=== PATIENT | male | born 1985 | race Caucasian/White ===

== ENCOUNTER 2020-08-15 16:01 | Emergency (ER) | payer MEDICAID ==
[~2020-08-15] VITALS: Ht 180.3 cm; Wt 73.5 kg
[2020-08-15 17:12] VITALS: BP 114/62
[2020-08-15] MEDS ORDERED: ONDA4TAB6 PO (18:39)
[2020-08-15] MEDS ORDERED: DIPH25CA83 PO (18:39)
== END 2020-08-15 18:52 | disposition home or self-care (01) ==
LOC: ER 16:02
DX: Z02.89 Encounter for other administrative examinations (principal); F11.90 Opioid use, unspecified, uncomplicated; Z79.899 Other long term (current) drug therapy
CPT/HCPCS: 99283

== ENCOUNTER 2020-08-17 16:41 | Emergency (ER) | payer MEDICAID ==
[~2020-08-17] VITALS: Ht 180.3 cm; Wt 79.5 kg
[~2020-08-17 16:41] MED LIST: DIPH25CA83 PO; ONDA4TAB6 PO
[2020-08-17 16:43] VITALS: BP 126/73
== END 2020-08-17 17:08 | disposition home or self-care (01) ==
LOC: ER 16:42
DX: Z00.01 Encounter for general adult medical examination with abnormal findings (principal); F17.200 Nicotine dependence, unspecified, uncomplicated
CPT/HCPCS: 99281

== ENCOUNTER 2020-08-19 17:22 | Emergency (ER) | payer MEDICAID ==
[~2020-08-19] VITALS: Ht 180.3 cm; Wt 77.3 kg
[2020-08-19 17:31] VITALS: BP_SYST 122
== END 2020-08-19 17:53 | disposition home or self-care (01) ==
LOC: ER 17:22
DX: F11.10 Opioid abuse, uncomplicated (principal); Z00.01 Encounter for general adult medical examination with abnormal findings
CPT/HCPCS: 99281

== ENCOUNTER 2020-08-21 01:14 | Emergency (ER) | payer MEDICAID ==
[~2020-08-21] VITALS: Ht 180.3 cm; Wt 76.0 kg
[2020-08-21 01:17] VITALS: BP 135/61
== END 2020-08-21 01:46 | disposition home or self-care (01) ==
LOC: ER 01:15
DX: F19.10 Other psychoactive substance abuse, uncomplicated (principal); F17.200 Nicotine dependence, unspecified, uncomplicated; F15.90 Other stimulant use, unspecified, uncomplicated; F11.90 Opioid use, unspecified, uncomplicated; Z79.899 Other long term (current) drug therapy
CPT/HCPCS: 99281

== ENCOUNTER 2020-08-30 13:08 | Emergency (ER) | payer MEDICAID ==
[~2020-08-30] VITALS: Ht 180.3 cm; Wt 77.7 kg
[2020-08-30] MEDS ORDERED: LIDOcaine 1% W/epiNEPHrine 1:200,000 10ml vial IJ ONE (14:15)
[2020-08-30 14:30] VITALS: BP 115/74
== END 2020-08-30 14:58 | disposition home or self-care (01) ==
LOC: ER 13:09
DX: L02.512 Cutaneous abscess of left hand (principal); F11.90 Opioid use, unspecified, uncomplicated; F17.200 Nicotine dependence, unspecified, uncomplicated; Z79.899 Other long term (current) drug therapy
CPT/HCPCS: 10060; 99282